=== PATIENT | female | born 1975 | race Caucasian/White ===

== ENCOUNTER 2022-12-28 15:32 | Emergency (ER) | payer MEDICAID ==
[~2022-12-28] VITALS: Ht 162.6 cm; Wt 68.2 kg
[2022-12-28 17:09] VITALS: TEMP 97.5
[2022-12-28 20:46] VITALS: BP 131/93; PULSE 81; O2SAT 100
[2022-12-28] MEDS ORDERED: ondansetron 4mg rapidly disintigrating tab PO ONE (20:55)
[2022-12-28] MEDS ORDERED: HYDROcodone/acetaminophen 10/325mg tab PO ONE (20:55)
[2022-12-28 21:49] VITALS: RESP 18
[2022-12-28] MEDS ORDERED: TETanus/Pertussis (Acell)/Diphther VAC/PF (Tdap-Adult) 0.5ml syringe IMVAC ONE (21:50)
== END 2022-12-28 22:58 | disposition home or self-care (01) ==
LOC: EEVIPCON 15:32 → ER 15:32
DX: S01.81XA Laceration without foreign body of other part of head, initial encounter (principal); S70.10XA Contusion of unspecified thigh, initial encounter; Z88.2 Allergy status to sulfonamides; Z88.0 Allergy status to penicillin; Y08.89XA Assault by other specified means, initial encounter; Y93.89 Activity, other specified; Y92.89 Other specified places as the place of occurrence of the external cause; Y99.8 Other external cause status
CPT/HCPCS: 12011; 70450; 70486; 72125; 90471; 90715; 99285; J7030

== ENCOUNTER 2024-06-09 16:13 | Emergency (ER) | payer MEDICAID ==
[~2024-06-09] VITALS: Ht 167.6 cm; Wt 73.6 kg
[2024-06-09 16:16] VITALS: BP 127/91; PULSE 89; RESP 16; TEMP 98; O2SAT 98
[2024-06-09] MEDS ORDERED: IBUP-1984 PO (16:41)
[2024-06-09] MEDS ORDERED: LIDO700A32 TD (16:41)
== END 2024-06-09 17:07 | disposition home or self-care (01) ==
LOC: ER 16:13
DX: M77.12 Lateral epicondylitis, left elbow (principal); Z88.2 Allergy status to sulfonamides; Z88.0 Allergy status to penicillin; Z79.1 Long term (current) use of non-steroidal anti-inflammatories (NSAID)
CPT/HCPCS: 73080; 99283

== ENCOUNTER 2024-09-04 00:10 | Emergency (ER) | payer MEDICAID ==
[~2024-09-04] VITALS: Ht 162.6 cm; Wt 75.2 kg
[~2024-09-04 00:10] MED LIST: LIDO700A32 TD
[2024-09-04 00:12] VITALS: TEMP 97.7
[2024-09-04 01:05] VITALS: BP 132/76; PULSE 80; RESP 16; O2SAT 99
== END 2024-09-04 01:10 | disposition home or self-care (01) ==
LOC: ER 00:11
DX: M25.511 Pain in right shoulder (principal)
CPT/HCPCS: 73030; 99284